=== PATIENT | male | born 1945 | race Caucasian/White ===

== ENCOUNTER 2016-09-13 05:29 | Day surgery (SDC) | payer MEDICARE ==
[2016-09-12 08:40] LABS: HEMATOCRIT 37.7 % (40.0-51.0); HEMOGLOBIN 13.1 g/dL (13.6-17.8)
[2016-09-12 08:49] LABS: PARTIAL THROMBO TIME 34.9 SEC (22.5-37.2)
[2016-09-12 09:04] LABS: BUN (BLOOD UREA NITROGEN) 14 MG/DL (6-23); CALCIUM, SERUM 8.7 MG/DL (8.5-10.4); CHLORIDE, SERUM 108 MMOL/L (96-112); CO2 (CARBON DIOXIDE) 30 MMOL/L (24-34); CREATININE 0.76 MG/DL (0.70-1.30); GFR AFRICAN AMERICAN 106 ML/MIN (>=60); GFR NON AFRICAN AMERICAN 91 ML/MIN (>=60); GLUCOSE, SERUM 96 MG/DL (60-99); POTASSIUM, SERUM 4.1 MMOL/L (3.5-5.3); SODIUM, SERUM 142 MMOL/L (135-148)
--- NOTE | ~2016-09-13 | OP ---
Record Of Operation [facility] [address] [place]. [address] NAME: BETTYE DOMINGUEZ : 41 STATUS : [place] [facility] [place] PAT#: [id number] AGE: 70 ADM/REG DATE : 09/13/16 MR#: [id number] REPORT SERV DATE: 09/13/16 DICTATED BY: ALZIA COSTA DATE: 09/13/16 REPORT STATUS : Draft TRANSCRIBED BY: MODL DATE: 09/13/16 DATE OF PROCEDURE: 09/13/2016 SURGEON: Aliza Costa MD. SERVICE: Otolaryngology. PREOPERATIVE DIAGNOSIS: Left neck mass. POSTOPERATIVE DIAGNOSES: 1. Left neck mass. 2. Papillary process, favor metastatic thyroid disease, defer to permanent pathology. PROCEDURE PERFORMED: Excision of left deep neck mass. INDICATIONS FOR PROCEDURE: The patient is a 70-year-old male with a large 8 cm left neck mass. This appears to be homogeneous on the CT scan. He has undergone previous FNA biopsy. This showed dark, brown fluid which was consistent with acellular mucin. There was no evidence of malignancy or other concerning features. The patient presents to the OR for surgical management as the fluid continues to recollect after each FNA biopsy. ANESTHESIA: General endotracheal. ESTIMATED BLOOD LOSS: 20 mL. RETAINED ITEMS: #10 fenestrated MADY drain. COMPLICATIONS: None. OPERATIVE FINDINGS: Large level 3 extending into level 5 neck mass with desmoplastic reaction. FLUIDS: Crystalloid. SPECIMENS: Left neck mass sent for frozen. DESCRIPTION OF PROCEDURE: The patient was identified in the preoperative holding, where informed consent was ensured. He was brought to the operating room, placed on the operating room table in supine position. General endotracheal anesthesia was induced without difficulty. A time-out was performed to identify the patient and discuss operative plan. The patient then prepped and draped in the standard sterile surgical fashion. Approximately 6 mL of 1% lidocaine with 1:100,000 epinephrine was injected into the patient's planned incision overlying the neck mass. This was allowed to take full effect. The planned neck incision was incised with a 15 blade through the subcutaneous tissue. A combination of sharp and blunt dissection was used to establish subplatysmal plane. Flaps Record Of Operation [facility] [address] [place]. [address] NAME: BETTYE DOMINGUEZ : 41 [place]US : [place] [facility] [place] PAT#: [id number] AGE: 70 ADM/REG DATE : 09/13/16 MR#: [id number] REPORT SERV DATE: 09/13/16 DICTATED BY: ALIZA COSTA DATE: 09/13/16 REPORT STATUS : Draft TRANSCRIBED BY: ARIA DATE: 09/13/16 were elevated in a superior and inferior direction. The external jugular vein was identified and preserved throughout the procedure. A small branch of the greater auricular nerve was also identified and preserved. The sternocleidomastoid muscle anterior border was unzipped of all fascia. The sternocleidomastoid muscle was unzipped, the cystic lesion could be appreciated extending from the proximal level 2 into level 3, and posteriorly to level 5. Sharp and blunt dissection was used to free up the external portion along the capsule of this mass. There was some desmoplastic reaction especially toward the level 5, and at the site of previous FNA biopsy in the level 3. The mass was carefully freed off the great vessels including the internal jugular vein and the carotid. In the deep neck, this was cleared off the deep muscles of the neck and posteriorly in the level 5. Cranial nerve 11 was not identified as this was more superior than our level of dissection. The capsule of the gland itself was not disrupted during the course of this resection. Once all aspects had been freed, Harmonic scalp was used to remove the remaining fascial attachments. The mass itself was passed off the field for routine and frozen analysis. Frozen analysis was consistent with a papillary process with deferment to permanent pathology for definitive diagnosis. The patient's wound bed was copiously irrigated with several 100 mL of normal saline. There did appear to be some inflammatory or metastatic lymph nodes particularly in the level 2. A partial level 2 neck dissection was performed, and lymph nodes were sent for routine pathology. There were no additional concerning masses. Once irrigation had been performed, Valsalva maneuver was performed as well. There was no additional evidence of bleeding. Careful hemostasis had been ensured with bipolar cautery. A MADY drain was placed into the wound bed, and secured to the skin with a 2-0 nylon suture. The platysmal and deep dermal layer were closed with 3-0 Vicryl in an interrupted fashion. The skin was reapproximated with tanisha. The patient was cleaned of all preparation. Turned over to Anesthesia for awakening and extubation. He was transported to the PACU in stable condition. DISPOSITION: The patient will be discharged home with MADY management and teaching. He will follow up when his MADY drain is less than 30 mL over 24 hours. We will review the pathology in approximately one week at his postoperative appointment. /MODL Aliza Costa MD / [id number] CC: MD LDIIA Garcia
[~2016-09-13 05:29] MED LIST: ATEN100 PO; HALF81 PO; IBU800 PO; LISINOPRIL40 MG PO; MULTIPLE VIT PO; NORV10 PO; VENTOLIN HFA INH; VITAMIN B-121000 MC1 SL
[2016-10-26] MEDS ORDERED: VITAMIN D31000 UNIT PO (16:56)
[2016-10-26] MEDS ORDERED: VITAMIN B 12 PO (16:56)
[2016-11-01] MEDS ORDERED: NORCO1 TA2 PO (12:17)
[2016-11-01] MEDS ORDERED: SYNTHROID200 MCG PO (12:17)
[2016-11-01] MEDS ORDERED: ZOFRAN4 PO (12:17)
== END 2016-09-13 18:22 | disposition home or self-care (01) ==
LOC: SDC 05:29
PROVIDERS: Otolaryngology
PROC: 07T20ZZ Resection of Left Neck Lymphatic, Open Approach (ICD-10-PCS; 2016-09-13)
PROC: 0WB60ZZ Excision of Neck, Open Approach (ICD-10-PCS; principal; 2016-09-13 07:15)
DX: C73 Malignant neoplasm of thyroid gland (principal); I10 Essential (primary) hypertension; I25.10 Atherosclerotic heart disease of native coronary artery without angina pectoris; J44.9 Chronic obstructive pulmonary disease, unspecified; G47.33 Obstructive sleep apnea (adult) (pediatric); B19.10 Unspecified viral hepatitis B without hepatic coma; H91.93 Unspecified hearing loss, bilateral; L40.9 Psoriasis, unspecified; F32.9 Major depressive disorder, single episode, unspecified; F41.9 Anxiety disorder, unspecified; F43.10 Post-traumatic stress disorder, unspecified; M19.90 Unspecified osteoarthritis, unspecified site; Z87.891 Personal history of nicotine dependence; Z85.030 Personal history of malignant carcinoid tumor of large intestine; Z90.49 Acquired absence of other specified parts of digestive tract; Z79.899 Other long term (current) drug therapy; Z79.82 Long term (current) use of aspirin; Z98.890 Other specified postprocedural states
CPT/HCPCS: 80048; 85014; 85018; 85730; 88307; 88331; 88341; 88342; 93005; A9270-GY; J0690; J2250; J3010